=== PATIENT | male | born 1980 | race Caucasian/White ===

== ENCOUNTER 2021-10-04 13:05 | Emergency (ER) | payer OTHER ==
[2021-10-04 13:15] VITALS: BP 118/65; PULSE 82; TEMP 98.2; BMI 24.3
[2021-10-04] MEDS ORDERED: ACETAMINOPHEN 500 MG TABLET (FP) PO ONE (15:32)
[2021-10-04] MEDS ORDERED: ACETAMINOPHEN 500 MG TABLET (FP) ONE (15:40)
== END 2021-10-04 16:00 | disposition home or self-care (01) ==
LOC: JER 13:05
DX: B34.9 Viral infection, unspecified (principal)
CPT/HCPCS: 71045-TC-FY; 87804; 99284-25; C9803; U0003; U0005